=== PATIENT | female | born 1965 ===

== ENCOUNTER 2023-09-10 07:35 | Day surgery (SDC) | payer OTHER ==
[2023-09-05 13:25] VITALS: BP 179/101
[~2023-09-10] VITALS: Ht 160 cm; Wt 100.5 kg
--- NOTE | ~2023-09-10 | OR ---
[facility] [address], [place] [address] Draft DATE OF OPERATION: 09/10/2023 SURGEON: Shiv Novoa MD PREOPERATIVE DIAGNOSIS: Nasal obstruction due to septal deformity and inferior turbinate hypertrophy. POSTOPERATIVE DIAGNOSIS: Nasal obstruction due to septal deformity and inferior turbinate hypertrophy. PROCEDURE: Septoplasty, cautery bilateral inferior turbinates. ANESTHESIA: General LMA, Richy SEARS. 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 A sinus CT has been performed which was essentially normal. She is taken to the operating room for the above-mentioned procedures. OPERATIVE PROCEDURE AND FINDINGS: After informed consent, the patient was taken to the operating room, placed in the supine position where general LMA anesthesia was induced. The patient and procedure were verified. The patient received preoperative intravenous Ancef and intranasal oxymetazoline. Headlight speculum exam of the nasal cavity showed septal deformity on the left side, spur and a shelf, which was obstructive. Inferior turbinates were nicely decongested. 1% lidocaine with epi was injected in the septal mucosa. The septal spur was then excised with Yue and the airway was improved. Inferior turbinates were then cauterized with a long handle needle point cautery starting on the right. Multiple transmucosal passes on the inferior turbinate on the medial and inferior surface starting anteriorly extending all the way back posteriorly, excellent shrinkage, decongestion, improvement in the airway. Same procedure on the left inferior turbinate. Minimal bleeding stopped afterwards. Packing was then placed. Trimmed Merocel one piece each side coated with Neosporin tied anteriorly over a pad. The pharynx was suctioned clear of blood and secretions. The patient was then awakened, extubated, and transported to the recovery room in good condition. No complications. PATIENT NAME: JACKIE NGUYỄN OPERATIVE REPORT DATE OF : 61 REPORT #: [id number] PHYSICIAN: SHIV NOVOA MD PCP: PHU IBARRA-Wan REPORT IS CONFIDENTIAL AND NOT TO BE RELEASED WITHOUT AUTHORIZATION [facility] [address] [place] [id number] Draft BLOOD LOSS: Minimal. SPECIMEN: No specimen. DRAINS: No drains. PACKING: One piece of Merocel each nostril. Shiv Novoa MD GC/MODL /[id number] Copies: ~ PATIENT NAME: JACKIE NGUYỄN OPERATIVE REPORT DATE OF : 61 REPORT #: [id number] PHYSICIAN: SHIV NOVOA MD PCP: PHU IBARRA REPORT IS CONFIDENTIAL AND NOT TO BE RELEASED WITHOUT AUTHORIZATION
[~2023-09-10 07:35] MED LIST: FLONASE ALLERG9.9 ML NAS; [UNRECOGNIZED DRUG - OTHER] PO
[2023-09-10] MEDS ORDERED: ADVAIR 250-501 EACH INH (08:26)
[2023-09-10 08:32] VITALS: BP 189/87
[2023-09-10 09:57] VITALS: BP 152/82
--- NOTE | 2023-09-10 11:17 | NUR ---
09/10/23 1117 Sheets,Carolynn 1105 PT ARRIVED TO PACU ON 10L VIA MASK, JAW THURST USED BY ENGRAVINGS POLISHER ON ARRIVAL. PT HEAD TURNED TO SIDE AND PT SITTING IN HIGH FOWLERS, JAW THRUST NO LONGER NEEDED. RESP EVEN AND UNLABORED, SMALL AMOUNT OF NOISEY AIRWAY NOTED.
[2023-09-10 12:05] VITALS: BP 136/64
--- NOTE | 2023-09-10 12:09 | NUR ---
PATIENT BACK IN DAY SURGERY ROOM FROM PACU. DENIES PAIN. VS CHECKED. NASAL PACKING IN PLACE. NO DRAINAGE FROM NOSE SEEN. IV SALINE LOCKED. IV SITE WNL. SCDs ON. TOLERATING SIPS OF JUICE. GIVEN APPLESAUCE TO EAT. CALL LIGHT WITHIN REACH.
[2023-09-10 13:10] VITALS: BP 125/65
[2023-09-10] MEDS ORDERED: CEPHALEXIN500 M1 PO (13:42)
[2023-09-10] MEDS ORDERED: TRAMADOL HCL50 MG PO (13:42)
--- NOTE | 2023-09-10 13:55 | NUR ---
1310: DENIES PAIN. TOLERATED APPLESAUCE. DRINKING PERSONAL PROTEIN SHAKE BROUGHT FROM HOME. MINIMAL DRAINAGE FROM NOSE. NASAL PACKING IN PLACE. VS CHECKED. NO NEEDS AT THIS TIME. 1340: PATIENT ASSISTED OOB AND TO BATHROOM. GAIT STEADY. VOID WITHOUT DIFFICULTY. GAIT STEADY BACK TO ROOM. PATIENT BACK IN BED RESTING. FAMILY AT BEDSIDE. 1345: CALL PLACED TO DR NOVOA REGARDING POST OP PAIN PRESCRIPTION. PATIENT STATES UNABLE TO TAKE ACETAMINOPHEN DUE TO VOMITING REACTION. PRESCRIPTION CHANGED TO TRAMADOL.
[2023-09-10 14:30] VITALS: BP 142/81
--- NOTE | 2023-09-10 15:35 | NUR ---
1410: PATIENT ASSISTED OOB AND TO BATHROOM. GAIT STEADY TO AND FROM BATHROOM. PATIENT GETTING DRESSED WITH HELP FROM FAMILY. 1430: DISCHARGE INSTRUCTIONS GIVEN TO PATIENT AND FIANCE. 1450: IV DC'D WNL. TIP INTACT. DRESSING APPLIED. 1455: PATIENT DISCHARGED TO HOME WITH FIANCE VIA WHEELCHAIR.
== END 2023-09-10 14:55 | disposition home or self-care (01) ==
LOC: DS 07:35 → OPS 07:35 → DS 09:00 → OPS 09:00
PROVIDERS: ATTEND Otolaryngology
PROC: 09BM0ZZ Excision of Nasal Septum, Open Approach (ICD-10-PCS; principal; 2023-09-10 10:00)
DX: J34.2 Deviated nasal septum (principal); J34.89 Other specified disorders of nose and nasal sinuses; J34.3 Hypertrophy of nasal turbinates; Z88.0 Allergy status to penicillin; J30.9 Allergic rhinitis, unspecified
CPT/HCPCS: 00160; A9270; J0690; J1100; J1885; J2250; J2405; J2704; J2765; J3010; J7121